=== PATIENT | female | born 1980 | race Two or more races ===

== ENCOUNTER 2021-01-12 11:55 | Outpatient (CLI) | payer OTHER | END 2021-01-12 15:00 | disposition home or self-care (01) | LOC: PPH VACUNA 11:55 | DX: Z23 Encounter for immunization (principal) ==

== ENCOUNTER 2021-06-30 07:23 | Emergency (ER) | payer OTHER ==
[~2021-06-30] VITALS: Ht 162.6 cm; Wt 68.0 kg
[2021-06-30] MEDS ORDERED: SYNTHROID112 MCG PO (07:32)
[2021-06-30] MEDS ORDERED: CYCLOBENZAPRINE10 MG PO (10:50)
[2021-06-30] MEDS ORDERED: DICLOFENAC POTA50 MG PO (10:50)
== END 2021-06-30 11:02 | disposition home or self-care (01) ==
LOC: ER 07:23
DX: S30.0XXA Contusion of lower back and pelvis, initial encounter (principal); M62.830 Muscle spasm of back; W01.198A Fall on same level from slipping, tripping and stumbling with subsequent striking against other object, initial encounter; Y93.01 Activity, walking, marching and hiking; Y92.018 Other place in single-family (private) house as the place of occurrence of the external cause; Y99.8 Other external cause status

== ENCOUNTER 2021-11-26 07:13 | Outpatient (CLI) | payer OTHER ==
[~2021-11-26 07:13] MED LIST: CYCLOBENZAPRINE10 MG PO; DICLOFENAC POTA50 MG PO; SYNTHROID112 MCG PO
== END 2021-11-26 07:31 | disposition home or self-care (01) ==
LOC: MAMO-SONO 07:13
PROVIDERS: ATTEND Obstetrics & Gynecology
DX: N64.4 Mastodynia (principal)

== ENCOUNTER 2024-01-06 22:18 | Emergency (ER) | payer OTHER ==
[~2024-01-06] VITALS: Ht 162.6 cm; Wt 68.0 kg
[2024-01-07] MEDS ORDERED: TETANUS & DIPHTHERIA TOX,ADULT 0.5 ML VIAL IM STA (02:39)
[2024-01-07] MEDS ORDERED: CEFAZOLIN SODIUM 1,000 MG VIAL IM STA (02:39)
== END 2024-01-07 02:49 | disposition home or self-care (01) ==
LOC: ER 22:19
DX: S91.301A Unspecified open wound, right foot, initial encounter (principal); W25.XXXA Contact with sharp glass, initial encounter; Y93.89 Activity, other specified; Y92.89 Other specified places as the place of occurrence of the external cause; Y99.8 Other external cause status